=== PATIENT | male | born 1990 | race Caucasian/White ===

== ENCOUNTER → 2018-11-03 14:04 | Outpatient (CLI) | payer SELFPAY ==
--- NOTE | 2018-11-03 14:07 | VDLE_ITS ---
Reason For Study: LLE pain and swelling RIGHT LEFT CFV is compressible, spontaneous, phasic, CFV is compressible, spontaneous, phasic, competent and demonstrates normal competent, and demonstrates normal augmentation. augmentation. Procedure FV is compressible, spontaneous, phasic, Exam performed in department. competent and demonstrates normal The exam was diagnostic. augmentation. A preliminary report was called and/or faxed POP V is compressible, spontaneous, phasic, to Dr. Arvizu @ 2:45 pm @ [phone]. competent and demonstrates normal augmentation. T/P Trunk is compressible. PTV is compressible. LT PerV is compressible. SFJ is incompetent. GSV is incompetent throughout > .5 seconds with diameter 1.37 x 1.73. SSV is competent. VV in medial calf are now compressible. Interpretation Summary 1. Left no DVT or SVT. 2. Large 17mm GSV reflux into branches. Ordering Physician: Kristian Arvizu Referring Physician: Víctor Siddiqui Performed By: Valeria Nicole, CHRISTINA, RVT
== END ==
PROVIDERS: Family Provider Family Medicine; PCP Family Medicine; Referring Provider Surgery Vascular Surgery; Visit Provider Surgery Vascular Surgery
DX: M79.605 Pain in left leg (principal); M79.89 Other specified soft tissue disorders
CPT/HCPCS: 93971